=== PATIENT | female | born 1975 | race Caucasian/White ===

== ENCOUNTER 2024-04-21 19:12 | Emergency (ER) | payer OTHER, SELFPAY ==
[2024-04-21 19:45] VITALS: BP 121/87; PULSE 93; TEMP 36.9; O2SAT 98; BMI 37.9
--- NOTE | 2024-04-21 20:41 | ED.EXTPRO1 ---
HPI - Extremity Problem General Chief complaint: Extremity Problem, Nontraumatic Stated complaint: POST OP COMPLICATIONS Time Seen by Provider: 04/21/24 20:32 History of Present Illness HPI Narrative: s/p left BKA 3 weeks ago at [facility] [place] for acute arterial insufficiency. Is now on eliquis. Bleeding from the incision and wanted to have the wound checked. She has phantom pain of her leg. No fever, nausea and otherwise feels well. She is diabetic Related Data Allergies Allergy/AdvReac Type Severity Reaction Status Date / Time Penicillins Allergy Severe Verified 04/21/24 19:48 Review of Systems ROS Status of ROS 10 or more systems reviewed and unremarkable except as noted in history and below Exam Constitutional Vital Signs, click to edit/add: Last Vital Signs Temp 98.4 F 04/21/24 19:45 Pulse 93 H 04/21/24 19:45 Resp 16 04/21/24 19:45 BP 121/87 04/21/24 19:45 Pulse Ox 98 04/21/24 19:45 O2 Del Method Room Air 04/21/24 19:45 Common normals: no apparent distress, average body habitus, oriented x3, no limitations, healthy appearing, alert and well nourished [facility] Common normals: normocephalic and head/scalp atraumatic Eye Common normals: EOMs intact bilaterally and conjunctivae normal Respiratory Common normals: normal respiratory effort, no retractions, no use of accessory muscles and clear to auscultation bilaterally Cardio Common normals: regular rate, regular rhythm, S1 normal heart sound and S2 normal heart sound GI Common normals: Normal to inspection, nondistended, normoactive bowel sounds present, soft to palpation and non-tender Extremity Other: left BKA incision looks good. ashley in place. mild ooze of blood from mid aspect of the incision. No swelling or discharge. No erythema of the site Neuro Common normals: oriented x3, CN's II-XII intact bilaterally, moves all extremities and no focal motor deficits Psych Appearance: grossly normal Course Vital Signs Vital signs: Vital Signs Temperature 98.4 F 04/21/24 19:45 Pulse Rate 93 H 04/21/24 19:45 Respiratory Rate 16 04/21/24 19:45 Blood Pressure 121/87 04/21/24 19:45 Pulse Oximetry 98 04/21/24 19:45 Oxygen Delivery Method Room Air 04/21/24 19:45 Temperature 98.4 F 04/21/24 19:45 Pulse Rate 93 H 04/21/24 19:45 Respiratory Rate 16 04/21/24 19:45 Blood Pressure 121/87 04/21/24 19:45 Pulse Oximetry 98 04/21/24 19:45 Oxygen Delivery Method Room Air 04/21/24 19:45 MDM - Extremity (Nontraumatic) MDM Narrative Medical decision making narrative: patient presents with post op bleed at her incision left BKA. Mild ooze easily controlled with pressure. she is on eliquis. I don't see evidence of infection. Pressure dressing applied and patient discharged to follow up with her surgeon Discharge Plan Discharge Stand Alone Forms: Portal Instructions Chief Complaint: Extremity Problem, Nontraumatic Clinical Impression: Postoperative bleeding from incision Patient Disposition: Home, Self-Care Print Language: Kyrgyz Instructions: Postoperative Bleeding (ED) Additional Instructions: call your surgeon in the AM for an appoinment in the next few days Referrals: Physician,Non-Staff, MD [Primary Care Provider] - 1 week
[2024-04-21 21:03] VITALS: BP 135/96; PULSE 70; O2SAT 100
== END 2024-04-21 21:04 | disposition home or self-care (01) ==
PROVIDERS: Emergency Provider Internal Medicine
DX: M96.830 Postprocedural hemorrhage of a musculoskeletal structure following a musculoskeletal system procedure (principal); Z89.512 Acquired absence of left leg below knee; Z79.01 Long term (current) use of anticoagulants; E11.9 Type 2 diabetes mellitus without complications; G54.6 Phantom limb syndrome with pain
CPT/HCPCS: 99283

== ENCOUNTER 2025-03-13 16:32 | Outpatient (RCR) | payer OTHER, SELFPAY | END 2025-06-06 07:13 | disposition home or self-care (01) | LOC: PT 16:32 | PROVIDERS: Visit Provider Physical Medicine & Rehabilitation | DX: S78.112D Complete traumatic amputation at level between left hip and knee, subsequent encounter (principal) | CPT/HCPCS: 97110; 97112; 97161 ==